=== PATIENT | male | born 1990 | race African-American/Black ===

== ENCOUNTER 2019-08-05 20:15 | Emergency (ER) | payer OTHER ==
[~2019-08-05] VITALS: Ht 175.3 cm; Wt 79.5 kg
[2019-08-05 21:18] LABS: INFLUENZA A AMPLIFICATION NEGATIVE (NEGATIVE); INFLUENZA B AMPLIFICATION NEGATIVE (NEGATIVE)
[2019-08-05] MEDS ORDERED: PSEUDOEPHEDRINE 30 MG TAB PO STA (22:33)
[2019-08-05] MEDS ORDERED: PSEU120T19 PO (22:34)
[2019-08-05] MEDS ORDERED: FLON1SPR NARES (22:34)
[2019-08-05 22:45] VITALS: BP 129/61
== END 2019-08-05 22:46 | disposition home or self-care (01) ==
LOC: M ED 20:15
DX: R09.81 Nasal congestion (principal)

== ENCOUNTER 2020-04-15 20:38 | Emergency (ER) | payer OTHER ==
[~2020-04-15] VITALS: Ht 175.3 cm; Wt 77.7 kg
[~2020-04-15 20:38] MED LIST: FLON1SPR NARES; PSEU120T19 PO
[2020-04-15] MEDS ORDERED: MOBI15TA PO (20:44)
[2020-04-15] MEDS ORDERED: ACET-683 PO (20:44)
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
[2020-04-15] MEDS ORDERED: CYCL-707 PO (23:47)
[2020-04-15] MEDS ORDERED: IBUP-1022 PO (23:47)
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
[2020-04-16] MEDS ORDERED: CYCLOBENZAPRINE 10MG TABLET PO ONE
[2020-04-16] MEDS ORDERED: IBUPROFEN 600MG TAB PO ONE
[2020-04-16 00:02] VITALS: BP 126/85
[2020-05-19] MEDS ORDERED: ZANA2CAP PO (14:43)
== END 2020-04-16 00:09 | disposition home or self-care (01) ==
LOC: M ED 20:38
DX: S13.4XXA Sprain of ligaments of cervical spine, initial encounter (principal); S23.3XXA Sprain of ligaments of thoracic spine, initial encounter; S43.402A Unspecified sprain of left shoulder joint, initial encounter; V43.62XA Car passenger injured in collision with other type car in traffic accident, initial encounter; Y92.9 Unspecified place or not applicable; Y93.9 Activity, unspecified; Y99.9 Unspecified external cause status

== ENCOUNTER 2020-05-26 07:25 | Day surgery (SDC) | payer OTHER ==
[~2020-05-26] VITALS: Ht 175.3 cm; Wt 75.3 kg
[~2020-05-26 07:25] MED LIST changes: +ACET-683 PO; +CYCL-707 PO; +IBUP-1022 PO; +MOBI15TA PO; +NS 1,000 ML IV ONE; +ZANA2CAP PO
[2020-05-26] MEDS ORDERED: propofoL 200 MG/20 ML VIAL As Ordered ONE ×2 (08:45→09:03)
[2020-05-26] MEDS ORDERED: LIDOCAINE 2% 100MG/5ML SDV (FOR ANES.) As Ordered ONE (08:45)
--- NOTE | 2020-05-26 09:02 | ROOR ---
Patient Name: Eddie Krishnamurthy Procedure Date: 05/26/2020 8:48 AM Date of : 1990 Age: 30 Room: [facility] Gender: Male Note Status: Finalized Procedure: Upper Endoscopy + Biopsies Indications: Lower abdominal pain Providers: Hernandez Sood MD Referring MD: DADA ALAS MD Requesting Provider: Medicines: Monitored Anesthesia Care Complications: No immediate complications. Procedure: Pre-Anesthesia Assessment: - The heart rate, respiratory rate, oxygen saturations, blood pressure, adequacy of pulmonary ventilation, and response to care were monitored throughout the procedure. The Endoscope was introduced through the mouth, and advanced to the second part of duodenum. The upper GI endoscopy was accomplished without difficulty. The patient tolerated the procedure well. Findings: The Z-line was regular and was found 40 cm from the incisors. Diffuse mild inflammation characterized by congestion (edema) and friability was found in the entire examined stomach. Biopsies were taken with a cold forceps for Helicobacter pylori testing. The exam of the duodenum was otherwise normal. The exam was otherwise without abnormality. Impression: - Z-line regular, 40 cm from the incisors. - Mucosal changes suspicious for gastritis. Biopsied. - The examination was otherwise normal. Recommendation: - Patient has a contact number available for emergencies. The signs and symptoms of potential delayed complications were discussed with the patient. Return to normal activities tomorrow. Written discharge instructions were provided to the patient. - Resume previous diet. - Discharge patient to home. - Continue present medications. - Await pathology results. - Telephone GI clinic for pathology results in 1 week. - Return to referring physician. - The findings and recommendations were discussed with the patient. Hernandez Sood MD Hernandez Sood MD 05/26/2020 9:02:49 AM Electronically signed by Hernandez Sood MD Number of Addenda: 0 Note Initiated On: 05/26/2020 8:48 AM Estimated Blood Loss: Estimated blood loss: none.
--- NOTE | 2020-05-26 09:18 | ROOR ---
Patient Name: Eddie Krishnamurthy Procedure Date: 05/26/2020 8:48 AM Date of : 1990 Age: 30 Room: [facility] Gender: Male Note Status: Finalized Procedure: Total Colonoscopy to Cecum Indications: Lower abdominal pain Providers: Hernandez Sood MD Referring MD: DADA ALAS MD Requesting Provider: Medicines: Monitored Anesthesia Care Complications: No immediate complications. Procedure: Pre-Anesthesia Assessment: - The heart rate, respiratory rate, oxygen saturations, blood pressure, adequacy of pulmonary ventilation, and response to care were monitored throughout the procedure. The Colonoscope was introduced through the anus and advanced to the cecum, identified by appendiceal orifice and ileocecal valve. The colonoscopy was performed without difficulty. The patient tolerated the procedure well. The quality of the bowel preparation was excellent. Findings: The perianal and digital rectal examinations were normal. No other significant abnormalities were identified in a careful examination of the remainder of the colon. The exam was otherwise without abnormality on direct and retroflexion views. Impression: - The examination was otherwise normal on direct and retroflexion views. - No specimens collected. - The exam was otherwise normal to the cecum. Recommendation: - Patient has a contact number available for emergencies. The signs and symptoms of potential delayed complications were discussed with the patient. Return to normal activities tomorrow. Written discharge instructions were provided to the patient. - High fiber diet. - Discharge patient to home. - Continue present medications. - Repeat colonoscopy at age 51 for screening purposes. - Return to referring physician. - The findings and recommendations were discussed with the patient. Hernandez Sood MD Hernandez Sood MD 05/26/2020 9:17:48 AM Electronically signed by Hernandez Sood MD Number of Addenda: 0 Note Initiated On: 05/26/2020 8:48 AM Estimated Blood Loss: Estimated blood loss: none.
[2020-05-26 09:45] VITALS: BP 141/86
== END 2020-05-26 10:41 | disposition home or self-care (01) ==
LOC: M OPP 07:25
PROVIDERS: ATTEND Internal Medicine Gastroenterology
DX: K29.70 Gastritis, unspecified, without bleeding (principal); R10.30 Lower abdominal pain, unspecified; Z79.899 Other long term (current) drug therapy

== ENCOUNTER → 2022-09-06 | Outpatient (CLI) | payer OTHER ==
[~2022-09-06] MED LIST changes: -NS 1,000 ML IV ONE
== END ==
LOC: M RAD 07:00
PROVIDERS: ATTEND Physician Assistant
DX: R10.10 Upper abdominal pain, unspecified (principal)